=== PATIENT | female | born 1940 | race Caucasian/White ===

== ENCOUNTER 2016-07-04 10:22 | Emergency (ER) | payer MEDICARE ==
[~2016-07-04] VITALS: Ht 152.4 cm; Wt 79.5 kg
[2016-07-04 10:26] VITALS: BP 146/66; PULSE 67; RESP 15; O2SAT 96
--- NOTE | 2016-07-04 10:59 | ED.REPORT ---
HPI-General Illness Date of Service Jul 04, 2016 ED Provider: Cyrus Moraes DO A 76 year old female with a history of hypertension and CAD presents to the ED complaining of a headache that began this morning. The pain is worse on her right side and she describes the pain as an "ache". Patient reports that this is the worst headache she has ever experienced and rates her current pain as an 8/10. Associated symptoms include neck pain, nausea, diarrhea, and vomiting. The pain in her neck is reportedly similar to her chronic neck pain. She denies any recent injury. Patient is currently taking Statin. She denies any changes in vision, photophobia, sound sensitivity, weakness in extremities, difficulty speaking, fever or chills. Patient denies taking any OTC medications to help relieve her symptoms. Nursing Notes Stated Complaint: HEAD PAIN Chief Complaint: Headache Nursing Notes Reviewed: Yes Allergies: Coded Allergies: codeine (Verified Adverse Reaction, Intermediate, NAUSEA, 07/04/16) Uncoded Allergies: Codeine (Adverse Reaction, Unknown, 10/03/04) Scheduled PRN Cyclobenzaprine (Cyclobenzaprine) 5 Mg Tablet 5 MG PO TID PRN PRN Spasm Ondansetron ODT (Zofran ODT) 4 Mg Tablet 4 MG PO Q4H PRN PRN For Nausea General Time Seen by MD: 10:42 Chief Complaint Headache Hx Obtained From: Patient Arrived By: Walk-in Sudden in Onset?: Yes Onset Occurred: 1 - 4 hours ago Symptom Duration: Since onset Location: : Head Quality: Aching Radiation: : Does not radiate Severity: Current: Pain level 8 out of 10 Severity: Maximum: Pain level 10 out of 10 Associated with: Reports: Dizziness, Headache, Nausea, Neck pain, Vomiting, Denies: Fever, Speech abnormal, Vision change, Weak extremity Pertinent Negative: Pt denies other symptoms Recent Healthcare: No recent doctor visit, No recent hospitalization Past Medical History Past Medical History CAD Hypertenison Chronic neck pain Denies: Diabetes mellitus Past Surgical History Bypass x3 Smoking History Unknown if Ever Smoker Social History Other Social History: Good social support, , Local resident Ambulatory Status Independent Review of Systems She denies sound sensitivity Full Review of Systems Constitutional: Denies: Chills, Fever Eyes: Denies: Photophobia Respiratory: Denies: Shortness of breath GI: Reports: Diarrhea, Nausea, Vomiting Neurologic: Reports: Dizziness, Headache, Lightheaded, Denies: Change LOC, Slurred speech, Unable to speak, Weakness Complete sys rev & neg: except as marked. Physical Exam Vital Signs Vital Signs Date Time Temp Pulse Resp B/P Pulse Ox O2 Delivery O2 Flow Rate FiO2 07/04/16 14:49 36.6 59 116/34 94 Room Air 07/04/16 13:03 37.2 61 120/57 96 Room Air 07/04/16 10:26 36.2 67 15 146/66 96 Room Air Initial VS: Reviewed General/Constitutional: Awake, Alert, No acute distress Head / Eyes: Atraumatic, Normocephalic, PERRL, EOMI, No nystagmus HEAD/EYES: Suboccipital tension ENT: Atraumatic, Airway patent, Mucous membranes moist, Pharynx NL, Tympanic membs NL, Ext aud canal NL Neck: Atraumatic, Supple, No adenopathy Meningeal Signs / ROM: Negative: Nuchal rigidity present Neck / Muscle Tenderness: Positive: Midline tenderness mid, Negative: Paraspinal L..., Paraspinal R... Respiratory / Chest: Atraumatic, Breath sounds NL, Breath sounds = bilat, No respiratory distress Cardiovascular: Heart rate NL, Regular rhythm, Heart sounds NL Abdomen: Atraumatic, Soft, Non-tender Back: Atraumatic, No paraspinal tenderness Neurologic: Oriented X3, Speech NL, No motor deficits, No sensory deficits, CN II - XII intact Interpretation & Diagnostics Lab Results Interpretation Result Diagram: 07/04/16 1147 07/04/16 1147 Test 07/04/16 11:47 White Blood Count 5.9th/mm3 (3.8-10.1) Red Blood Count 4.32mil/mm3 (3.90-5.20) Hemoglobin 12.4g/dL (12.0-15.6) Hematocrit 37.3% (35.0-46.0) Mean Corpuscular Volume 86.3fL (81-100) Mean Corpuscular Hemoglobin 28.7pg (27.0-35.0) Mean Corpuscular Hemoglobin Concent 33.2% (32.0-37.0) Red Cell Distribution Width 13.2% (12.3-15.4) Platelet Count 250bil/L (150-400) Neutrophils (%) (Auto) 69.8% (40-74) Lymphocytes (%) (Auto) 19.0% (14-46) Monocytes (%) (Auto) 9.7% (4-12) Eosinophils (%) (Auto) 1.0% (0-5) Basophils (%) (Auto) 0.3% (0-3) Erythrocyte Sedimentation Rate 17mm/hr (0-40) Sodium Level 140mEq/L (134-144) Potassium Level 3.7mEq/L (3.5-5.2) Chloride Level 102mEq/L (97-108) Carbon Dioxide Level 23mmol/L (18-29) Blood Urea Nitrogen 18mg/dL (8-27) Creatinine 0.90mg/dL (0.57-1.00) Estimat Glomerular Filtration Rate 87mL/min (>59) Glucose Level 125mg/dL (60-99) Calcium Level 9.7mg/dL (8.5-10.1) C-Reactive Protein 0.7mg/dL (0.0-0.5) CT Head Interpretation IMPRESSION: No acute intracranial abnormality. Dictated by: Rocco Rowley M.D. on 07/04/2016 at 11:39 Study: Head CT no contrast Interpretation / Wet Read by: Interpret - Radiologist Re-Eval/Medical Decision Med Decision/Clinical Course 76-year-old female with a history of chronic neck pain usually resolves by seeing a chiropractor presents with a headache that began with her usual neck pain and has been unrelenting. She has not tried any medications prior to arrival at the emergency department today. She notes this is the worse headache she has ever had. It is predominantly at the base of her skull on the right. Patient appears to be in minimal discomfort and denies photophobia/ phonophobia. She did not have any focal weakness or other neurologic symptoms. She had no nuchal rigidity. She does have some tight paraspinal muscles of the neck. She received fluids, dexamethasone, Tylenol, Toradol, Reglan, Zofran , and Benadryl and her headache improved. It appears to me that most of her headache is related to a muscle tension-type headache given her history of neck problems. I have advised her to follow-up with her PCP. Patient and family are agreeable Time of Eval: 12:37 Patient Status: Condition unchanged Re-Evaluation/Progress Note: Patient is rechecked and is resting comfortably. Headache is still present. All of the patient's questions are adressed. Time of Eval: 13:58 Patient Status: Condition improved, Pain improved Re-Evaluation/Progress Note: Patient reports her pain is much better. She understands and agrees with the treatment plan to follow-up with her PCP. Counseled Regarding: Diagnosis, Lab results, Need for follow-up, When/why to return to ED Discharge & Departure Primary Impression: Headache Headache type: tension-type Headache chronicity pattern: acute headache Intractability: not intractable Qualified Code: G44.209 - Tension-type headache, unspecified, not intractable Ruled Out: Intracranial bleed Disposition: Home Discharge Condition All VS Reviewed: Yes Condition: Improved Patient Instructions: Acute Headache (ED) Additional Instructions: Thank you for trusting us with your care this morning. Your emergency department evaluation including examination, lab work and head CT are reassuring that there is no dangerous cause for concern at this time. Your symptoms may be due to a tension headache, however, a clear cause of your symptoms was not identified and I recommend you schedule a follow-up appointment with your primary care physician in the next week for a recheck. You may want to consider scheduling an appointment with the referred neurologist (Dr. Veloz) or see the [facility] to identify the cause of your symptoms. Please take 1-2 Zofran every hours as needed for nausea. Take flexural up to 3 times per day as needed for pain or tension. Please return to the emergency department immediately for any new or worsening conditions including any shortness of breath, chest pain, fevers, chills, numbness/tingling, or worsening headache. Referrals: Judy Cornelius MD (PCP) Chencho Veloz MD Attestation Portions of this note were transcribed by Berry Weber. I, Dr. Moraes personally performed the history, physical exam and medical decision-making; I reviewed and confirmed the accuracy of the information in the transcribed note. Signed by: José Manuel Feng, 07/04/16 1400. copies to: Judy Cornelius MD, Gary R DO Jul 04, 2016 10:59 BERRY WEBER Jul 04, 2016 11:06
[2016-07-04] MEDS ORDERED: 0.9% Sodium Chloride 1,000 ML IV ONE (11:06)
[2016-07-04] MEDS ORDERED: Dexamethasone 10 mg/mL Inj IVPUSH ONE (11:10)
[2016-07-04] MEDS ORDERED: Ondansetron 2 mg/mL 2 mL Inj IVPUSH ONE (11:10)
--- NOTE | 2016-07-04 11:41 | DRSVH ---
PROCEDURE: CT BRAIN WITHOUT CONTRAST ([id number]) INDICATIONS: worst headache TECHNIQUE: Noncontrast 4.5 mm thick angled axial sections acquired from the foramen magnum to the vertex, with c oronal reformats. COMPARISON: None. FINDINGS: Image quality: Excellent. CSF spaces: Basal cisterns are patent. No extra-axial fluid collections. The ventricles are symmet asha in size and shape. Brain: No intracranial bleeds or masses. Bilateral basal ganglia calcifications are present. There is cerebral volume loss for age, with resultant ventricular and sulcal prominence. There are periven tricular and deep white matter chronic small vessel ischemic changes. There is intracranial internal carotid artery atherosclerosis. Skull and face: Calvarium and visualized facial bones appear intact, without suspicious lesions. Sinuses: Mild sphenoid sinus mucosal thickening bilaterally. Visualized sinuses and mastoids are oth erwise clear. IMPRESSION: No acute intracranial abnormality. Dictated by: Rocco Rowley M.D. on 07/04/2016 at 11:39 Approved by: Rocco Rowley M.D. on 07/04/2016 at 11:40
[2016-07-04 12:31] LABS: BASOPHILS % (AUTO) 0.3 % (0-3); MONOCYTES % (AUTO) 9.7 % (4-12); Mean Corpuscular Hemoglobin 28.7 pg (27.0-35.0); Mean Corpuscular Volume 86.3 fL (81-100); NEUTROPHILS % (AUTO) 69.8 % (40-74); Platelet Count 250 bil/L (150-400)
[2016-07-04] MEDS ORDERED: Ketorolac 15 mg/mL Inj IVPUSH ONE (12:40)
[2016-07-04] MEDS ORDERED: MetoCLOpramide 5 mg/mL 2 mL Inj IVPUSH ONE (12:40)
[2016-07-04 13:01] LABS: ERYTHROCYTE SEDIMENTATION RATE 17 mm/hr (0-40)
[2016-07-04 13:03] VITALS: BP 120/57; PULSE 61; O2SAT 96
[2016-07-04] MEDS ORDERED: CYCL5TAB PO (14:36)
[2016-07-04] MEDS ORDERED: ONDA4TAB9 PO (14:36)
[2016-07-04 14:49] VITALS: BP 116/34; PULSE 59; O2SAT 94
== END 2016-07-04 14:37 | disposition home or self-care (01) ==
LOC: SED 10:22
DX: G44.209 Tension-type headache, unspecified, not intractable (principal); I11.9 Hypertensive heart disease without heart failure; I25.10 Atherosclerotic heart disease of native coronary artery without angina pectoris; R11.2 Nausea with vomiting, unspecified; R19.7 Diarrhea, unspecified; M54.2 Cervicalgia; Z88.5 Allergy status to narcotic agent
CPT/HCPCS: 36415; 70450; 80048; 85025; 85651; 86140; 96361; 96374; 96375; 99285; J1100; J1200; J1885; J2405; J2765; J7030